=== PATIENT | female | born 1960 | race Caucasian/White ===

== ENCOUNTER 2017-02-22 13:23 | Emergency (ER) | payer OTHER, MEDICARE ==
[2017-02-22] MEDS ORDERED: ASPIRIN 81 MG CHEW TAB ONE (13:28)
[2017-02-22] MEDS ORDERED: ASPIRIN 81 MG CHEW TAB PO ONE (13:35)
[2017-02-22] MEDS ORDERED: MAG HYDROX/AL HYDROX/SIMETH 30 ML, Lidocaine 2%Visc 15ml 20 MG, PHENobarb/HYOSCY/ATROPI... PO ONE ×3 (13:37)
[2017-02-22] MEDS ORDERED: MAGNESIUM HYDROXIDE/AL HYDROX 30 ML UDC PO ONE (13:42)
[2017-02-22] MEDS ORDERED: Lidocaine 2%Visc 15ml 20 MG/ML UDC ONE (13:43)
[2017-02-22 13:45] LABS: BASOPHILS % 1.1 (0.0-1.5); EOSINOPHILS % 1.5 % (0.0-6.8); MEAN CORPUSCULAR HEMOGLOBIN 31.8 pg (28.0-34.0); MEAN CORPUSCULAR VOLUME 92.7 fl (80.0-100.0); MONOCYTES % 4.8 % (0.0-11.0)
--- NOTE | 2017-02-22 13:51 | ED Physician Documentation ---
Chest Pain - HISTORIAN Historian: patient, spouse - HPI Chief Complaint: Chest Pain Additional Information: high mid sternal chest pain onset after bike riding and "work\\out". never had similar before pos diaphoresis-none now Onset: hours (1245) Timing: gradual onset Duration: waxing, waning Last known Well Date: 02/22/17 Last Known Well Time: 12:44 Context: exertion Severity: moderate (7-10) Quality: pressure, dull Chest Pain Radiation: no radiation Chest Pain Signs/Symptoms: diaphoresis. denies: nausea, vomiting - ROS CONST: no problems. denies: recent illness, fever, recent injury MS/LYMPH: denies: neck pain GI/: none, vomiting (vomited gi [facility] immediately) EYES/ENT: denies: problems with vision SKIN/ENDO: denies: rash NEURO/PSYCH: anxiety - PAST HX [place] risk factors: hypertension (copd gerd) Neuro deficit: none GI disease: GERD Lung disease: COPD Surgeries/Procedures: cholecysectomy, hysterectomy Allergies/Adverse Reactions: Allergies Allergy/AdvReac Type Severity Reaction Status Date / Time codeine AdvReac Nausea/Vomi Verified 02/22/17 14:07 ting Home Medications: Ambulatory Orders Medication Instructions Recorded Alprazolam [Xanax] 1 mg PO D 08/28/12 Budesonide/Formoterol Fumarate 2 puff INH PRN PRN 08/31/15 [Symbicort 160-4.5 Mcg Inhaler] Levothyroxine Sodium [Synthroid] 75 mcg PO D 08/31/15 Oxycodone HCl/Acetaminophen 1 tab PO PRN PRN 08/31/15 [Oxycodone-Acetaminophen 10-325] Tiotropium [place] [Spiriva] 1 puff INH PRN PRN 08/31/15 Bupropion HCl [Wellbutrin] 100 mg PO DAILY 02/22/17 Lisinopril [Lisinopril] 15 mg PO DAILY 02/22/17 Omeprazole [Prilosec] 20 mg PO DAILY 02/22/17 Rizatriptan Benzoate [Rizatriptan] 10 mg PO BID PRN 02/22/17 - SOCIAL HX Smoking History: non-smoker (quit OCTOBER this yr) Alcohol Use: rarely Drug Use: marijuana (near daily) - FAMILY HX Family HX: none - VITAL SIGNS Vital Signs: Vital Signs Temp Pulse Resp BP Pulse Ox 116/87 08/31/15 17:25 - REVIEWED ASSESSMENTS Nursing Assessment Reviewed: Yes Vitals Reviewed: Yes ED Results Lab/Radiology - Lab Results Lab Results: Lab Results 02/22/17 13:39 WBC 8.60 K/ul K/ul (4.00-12.00) RBC 4.41 M/ul M/ul (3.90-5.20) Hgb 14.0 g/dL g/dL (12.0-16.0) Hct 40.9 % % (34.5-46.5) MCV 92.7 fl fl (80.0-100.0) MCH 31.8 pg pg (28.0-34.0) MCHC 34.3 g/dL g/dL (30.0-36.0) RDW 13.1 % % (11.3-14.3) Plt Count 258 K/mm3 K/mm3 (130-400) Neut % (Auto) 70.6 % % (39.0-79.0) Lymph % (Auto) 20.5 % % (16.0-50.0) [place] % (Auto) 4.8 % % (0.0-11.0) Eos % (Auto) 1.5 % % (0.0-6.8) Baso % (Auto) 1.1 (0.0-1.5) Neut # (Auto) 6.0 # k/uL # k/uL (1.4-7.7) Lymph # (Auto) 1.8 # k/uL # k/uL (0.6-4.0) [place] # (Auto) 0.4 # k/uL # k/uL (0.0-0.9) Eos # (Auto) 0.1 # k/uL # k/uL (0.0-0.6) Baso # (Auto) 0.1 # k/uL # k/uL (0.0-0.5) Reactive Lymphs % 1.3 % % (0.0-5.0) Reactive Lymphs # 0.1 # k/uL # k/uL (0.0-0.8) - Orders Orders: ED Orders Category Date Time Status Continuous EKG monitoring Q30M Care 02/22/17 13:35 Ordered Continuous Pulse Oximetry Q30M Care 02/22/17 13:[address] IV Lock 1T Care 02/22/17 13:36 Ordered CHEST 1 VIEW [RAD] Stat Exams 02/22/17 13:35 Ordered CBC/PLATELET/DIFF Routine Lab 02/22/17 13:35 Ordered CMP Routine Lab 02/22/17 13:35 Ordered CREATINE KINASE Routine Lab 02/22/17 13:35 Ordered TROPONIN I (cTnI) Stat Lab 02/22/17 13:35 Ordered Aspirin Med 02/22/17 13:28 Discontinued 324 mg .ROUTE .STK-MED ONE Aspirin Med 02/22/17 13:35 Once 324 mg PO NOW ONE Gi Cocktail Med 02/22/17 13:37 Ordered Mag Hydrox/Al Hydrox/Simeth [Mylanta] 30 ml Lidocaine 2%Visc 15ml [Xylocaine] 20 mg PHENobarb/HYOSCY/ATROPINE/SCOP [] 10 ml PO NOW Lidocaine 2%Visc 15ml [Xylocaine] Med 02/22/17 13:43 Discontinued 300 mg .ROUTE .STK-MED ONE Magnesium Hydroxide/Al Hydrox [Maalox] Med 02/22/17 13:42 Discontinued 30 ml PO .STK-MED ONE Oxygen Daily Oxygen 02/22/17 13:45 Ordered EKG WITH COMPARISON Stat Ther 02/22/17 13:35 Ordered Chest Pain Physical Exam - EXAM General Appearance: mild distress, anxious EENT: eye inspection normal Neck: nml inspection, no carotid bruit. No: JVD present, lymphadenopathy Respiratory: no resp. distress, chest non-tender, nml breath sounds CVS: reg. rate & rhythm, no murmur Abdomen: soft, non-tender Skin: warm/dry, normal color. No: cyanosis, diaphoresis Extremities: non-tender, normal range of motion, no evidence of injury, no edema Neuro: oriented X3, motor nml, sensation nml, mood/affect nml Discharge Clincal Impression: atypical chest pain, anxiety depression Referrals: Sanjay Patel [Primary Care Provider] - 2 Days Comments: trying to quit cigarettes and loose wt. made deal w/husb both quit he has not done so - apperent anxiety. he has had prev [place] Condition: Good Disposition: 01 HOME, SELF-CARE Decision to Admit: NO Decision Time: 16:34
[2017-02-22 14:02] LABS: eGFR (African) > 60; eGFR (Non-African) > 60
--- NOTE | 2017-02-22 14:10 | Diagnostic Imaging Report ---
[facility] [id number] [facility].[address] [address] Report Submission Date: Feb 22, 2017 2:08:17 PM CDT Patient Study Name: GUI GLEZ Date: Feb 22, 2017 1:48:59 PM CDT Modality Type: CR Gender: F Description: CHEST : 58 Institution: [facility] Physician: RAIZA HAWTHORNE - ER Examination: Portable chest History: Chest discomfort Comparison exam: None available Findings: Single view of the chest demonstrates a normal cardiac and mediastinal silhouette. Few vascular calcifications involving the aortic arch. Lung kenney without focal infiltrate. No effusion. Osseous structures are appropriate for age. Impression: No acute pulmonary process. Electronically signed on Feb 22, 2017 2:08:17 PM CDT by: Immanuel PISANO
[2017-02-22] MEDS ORDERED: LORazepam 2 MG/ML VIAL IVP ONE (14:17)
[2017-02-22 16:35] VITALS: BP 138/66
[2017-02-23 05:40] LABS: APPEARANCE,URINE CLEAR (CLEAR); COLOR,URINE YELLOW (YELLOW); OCCULT BLOOD,URINE NEGATIVE (NEGATIVE); PH URINE 6.5 (5.0 - 8.0); UROBILINOGEN URINE 0.2 Eu (0.2-1.0)
== END 2017-02-22 16:34 | disposition home or self-care (01) ==
LOC: ED 13:23
DX: R07.89 Other chest pain (principal); F41.8 Other specified anxiety disorders
CPT/HCPCS: 71010; 80053; 82550; 84484; 85025; A9270; J2060; 81002; 96372; 99283; S1016

== ENCOUNTER 2017-07-04 18:51 | Emergency (ER) | payer OTHER, MEDICARE ==
--- NOTE | 2017-07-04 19:13 | ED Physician Documentation ---
General Adult - HISTORIAN Historian: patient - HPI Chief Complaint: General Adult Additional Information: Patient stats that she has been has been having some symptoms of cough (was productive), body aches, mild headache, has felt warm, has had some chills. Has had some nausea, vomited once two days ago. No diarrhea. These symptoms were getting better but today develop some dizines, vertigo symptoms. Is associated with some nausea, has occurs with laying down and getting up. Was started on Lisinopril 20mg in Mar, increased to 40mg in Apr. BP today has been in the 90s most of the time. No chest pain or pressure noted. Timing: still present - ROS CONST: fever (?), recent illness (URI, Flu) CVS/RESP: cough. denies: chest pain, shortness of breath GI/: abdominal pain (cramping) MS/SKIN/LYMPH: none - PAST HX Past History: hypertension, other (hypothyroidism, COPD) Surgeries/Procedures: cholecystectomy, hysterectomy Allergies/Adverse Reactions: Allergies Allergy/AdvReac Type Severity Reaction Status Date / Time codeine AdvReac Nausea/Vomi Verified 07/04/17 19:15 ting Home Medications: Ambulatory Orders Medication Instructions Recorded Alprazolam [Xanax] 1 mg PO D 08/28/12 Budesonide/Formoterol Fumarate 2 puff INH PRN PRN 08/31/15 [Symbicort 160-4.5 Mcg Inhaler] Levothyroxine Sodium [Synthroid] 75 mcg PO D 08/31/15 Oxycodone HCl/Acetaminophen 1 tab PO PRN PRN 08/31/15 [Oxycodone-Acetaminophen 10-325] Tiotropium [place] [Spiriva] 1 puff INH PRN PRN 08/31/15 Bupropion HCl [Wellbutrin] 100 mg PO DAILY 02/22/17 Lisinopril [Lisinopril] 40 mg PO DAILY 02/22/17 Omeprazole [Prilosec] 20 mg PO DAILY 02/22/17 Rizatriptan Benzoate [Rizatriptan] 10 mg PO BID PRN 02/22/17 - SOCIAL HX Smoking History: greater than 1 pack/day (2 a day) Alcohol Use: none Drug Use: marijuana - FAMILY HX Family History: Yes (mother HTN) - VITAL SIGNS Vital Signs: Vital Signs Temp Pulse Resp BP Pulse Ox 138/66 02/22/17 16:34 - REVIEWED ASSESSMENTS Nursing Assessment Reviewed: Yes Vitals Reviewed: Yes Progress - Progress Progress: 20:38 Post IV fluids patient is filling some better. Still having some dizziness with standing still. General Adult Physical Exam - PHYSICAL EXAM GENERAL APPEARANCE: no distress EENT: eye inspection normal NECK: normal inspection, thyroid normal, supple RESPIRATORY: no resp distress, chest non-tender, breath sounds normal. No: wheezes, rales, rhonchi CVS: reg rate & rhythm, heart sounds normal, equal pulses, no murmur, no gallop ABDOMEN: soft, no organomegaly, normal bowel sounds SKIN: warm/dry EXTREMITIES: non-tender, tenderness. No: edema NEURO: oriented X3, mood/affect nml Discharge Clincal Impression: Dehydration, Influenza Referrals: Sanjay Patel [Primary Care Provider] - 2 Days Additional Instructions: Hold your blood pressure medication if your top blood pressure number is < 110. Start taking just 20mg of the Lisinopril until you see your provider again. Drink lots of fluids, (enough so that your urine is a light color). If you have any further problems to see your primary care provider or return to the ED. Condition: Stable Disposition: 01 HOME, SELF-CARE Decision to Admit: NO Date of Decison to Admit: 07/04/17 Decision Time: 20:40
[2017-07-04] MEDS ORDERED: 0.9 % SODIUM CHLORIDE 1,000 ML IV SCH (19:30)
[2017-07-04] MEDS ORDERED: 0.9 % SODIUM CHLORIDE 1,000 ML IV ONE (19:39)
[2017-07-04 19:45] LABS: EOSINOPHILS % 2.1 % (0.0-6.8); MEAN CORPUSCULAR HEMOGLOBIN 31.8 pg (28.0-34.0); MEAN CORPUSCULAR VOLUME 94.8 fl (80.0-100.0); MONOCYTES % 4.8 % (0.0-11.0); NEUTROPHILS # 4.1 # k/uL (1.4-7.7)
[2017-07-04 19:59] LABS: eGFR (African) > 60; eGFR (Non-African) > 60
[2017-07-04 21:01] VITALS: BP 122/68
== END 2017-07-04 20:53 | disposition home or self-care (01) ==
LOC: ED 18:51
DX: E86.0 Dehydration (principal); J11.1 Influenza due to unidentified influenza virus with other respiratory manifestations
CPT/HCPCS: 80053; 85025; 96360; 99283; J7030; S1016